=== PATIENT | male | born 1960 | race Caucasian/White ===

== ENCOUNTER 2016-12-14 08:02 | Day surgery (SDC) | payer OTHER ==
[~2016-12-14 08:02] MED LIST: Bupivacaine 0.25%/EPINEPHrine 1:200,000 10 ML SDV ONE; Lactated Ringers 1,000 ML IV SCH; Sodium Chloride 0.9% 10 ML Syringe FLUSH PRN; Sodium Chloride 0.9% 2.5 ML Syringe FLUSH PRN; ceFAZolin 2 GM in Premix Bag 1 BAG IV ONE
--- NOTE | 2016-12-14 08:40 | PCM.PREANE ---
Preanesthetic Assessment - Anesthesia/Transfusion/Family Hx Anesthesia History: Prior Anesthesia Without Reaction Family History of Anesthesia Reaction: No Transfusion History: No Prior Transfusion(s) - Review of Systems General: No Symptoms Pulmonary: No Symptoms Cardiovascular: No Symptoms Gastrointestinal: No Symptoms Neurological: No Symptoms Other: Reports: None - Physical Assessment NPO Status Date: 12/13/16 O2 Sat by Pulse Oximetry: 97 Respiratory Rate: 16 Vital Signs: Last Vital Signs Temp 36.6 C 12/14/16 08:22 Pulse 91 12/14/16 08:22 Resp 16 12/14/16 08:22 BP 145/90 H 12/14/16 08:22 Pulse Ox 97 12/14/16 08:22 Height: 1.71 m Weight: 65.317 kg ASA Class: 2 Mental Status: Alert & Oriented x3 Dentition: Reports: Dentures, Partial ROM/Head Extension: Full Lungs: Clear to Auscultation, Normal Respiratory Effort Cardiovascular: Regular Rate, Regular Rhythm - Allergies Allergies/Adverse Reactions: Allergies Allergy/AdvReac Type Severity Reaction Status Date / Time No Known Allergies Allergy Verified 12/16/13 10:50 - Anesthesia Plan Pre-Op Medication Ordered: None - Acknowledgements Anesthesia Type Planned: General Anesthesia Pt an Appropriate Candidate for the Planned Anesthesia: Yes Alternatives and Risks of Anesthesia Discussed w Pt/Guardian: Yes Pt/Guardian Understands and Agrees with Anesthesia Plan: Yes PreAnesthesia Questionnaire HEENT History: Reports: Other (See Below) Other HEENT History: top and bottom denture Cardiovascular History: Reports: Hypertension Respiratory History: Reports: None Gastrointestinal History: Reports: Hepatitis, Other (See Below) Other Gastrointestinal History: occasional heartburn, hx hepatitis C but has been on medication for this and no longer has Genitourinary History: Reports: None Musculoskeletal History: Reports: Other (See Below) Other Musculoskeletal History: chronic rt shoulder pain Dermatologic History: Reports: Psoriasis - Past Surgical History Head Surgeries/Procedures: Reports: None GI Surgical History: Reports: Colonoscopy, EGD - SUBSTANCE USE Smoking Status *Q: Current Every Day Smoker Days Per Week of Alcohol Use: 1 Number of Drinks Per Day: 2 Total Drinks Per Week: 2 Recreational Drug Use History: No - HOME MEDS Home Medications: Home Meds Etanercept [Enbrel] 1 injection IM ASDIRECTED 12/16/13 [History] Lisinopril 40 mg PO DAILY 12/16/13 [History] - CURRENT (IN HOUSE) MEDS Current Meds: Current Medications Lactated Ringer's (Ringers, Lactated) 1,000 mls @ 125 mls/hr IV ASDIRECTED TUNG Last Admin: 12/14/16 08:19 Dose: 125 mls/hr Sodium Chloride (Saline Flush) 10 ml FLUSH ASDIRECTED PRN PRN Reason: Keep Vein Open Sodium Chloride (Saline Flush) 2.5 ml FLUSH ASDIRECTED PRN PRN Reason: Keep Vein Open Discontinued Medications Bupivacaine HCl/Epinephrine Bitart (Marcaine 0.25%/Epinephrine 1:200,000) Confirm Administered Dose 20 ml .ROUTE .STK-MED ONE Stop: 12/14/16 07:27 Cefazolin Sodium/Dextrose 2 gm (/ Premix) 50 mls @ 100 mls/hr IV ONETIME ONE Stop: 12/10/16 20:21
[2016-12-14] MEDS ORDERED: Propofol 200 MG/20 ML SDV ONE (11:10)
[2016-12-14] MEDS ORDERED: fentaNYL 100 MCG/2 ML SDV ONE (11:11)
[2016-12-14] MEDS ORDERED: Ondansetron 4 MG/2 ML SDV ONE (11:15)
[2016-12-14] MEDS ORDERED: Rocuronium 10 MG/ML 10 ML Syringe ONE (11:15)
[2016-12-14] MEDS ORDERED: Neostigmine Methylsulfate 1 MG/ML 5 ML Syringe ONE (11:15)
[2016-12-14] MEDS ORDERED: Ketorolac 30 MG/ML SDV ONE (11:15)
[2016-12-14] MEDS ORDERED: diphenhydrAMINE 50 MG/ML SDV ONE (11:15)
[2016-12-14] MEDS ORDERED: Metoclopramide 10 MG/2 ML SDV ONE (11:15)
[2016-12-14] MEDS ORDERED: fentaNYL 100 MCG/2 ML SDV IVPUSH PRN (11:18)
[2016-12-14] MEDS ORDERED: ceFAZolin 1 GM Vial ONE ×2 (11:38→11:44)
[2016-12-14] MEDS ORDERED: HYDROmorphone 2 MG/ML Syringe ONE (11:41)
[2016-12-14] MEDS ORDERED: Bupivacaine 0.5% 30 ML SDV ONE (11:44)
[2016-12-14] MEDS ORDERED: Phenylephrine/Normal Saline 100 MCG/ML 10 ML Syringe ONE (11:45)
[2016-12-14] MEDS ORDERED: Naloxone 0.4 MG/ML Syringe ONE (13:53)
--- NOTE | 2016-12-14 14:14 | PCM.OPNOTE ---
- General Post-Op/Procedure Note Date of Surgery/Procedure: 12/14/16 Operative Procedure(s): Right inguinal hernia repair Findings: Incarcerated and partially necrotic omentum. The spermatic cord and vessels were thickened and inflamed. The testicle was high riding due to this inflamation or due to vascular compromise from the inflammation. Pre Op Diagnosis: Incarcerated right inguinal hernia Post-Op Diagnosis: same Anesthesia Technique: General ET Tube Primary Surgeon: Nallely Lynn Condition: Good
[2016-12-14] MEDS ORDERED: hydrALAZINE 20 MG/ML SDV IVPUSH ONE (14:33)
[2016-12-14] MEDS ORDERED: hydrALAZINE 20 MG/ML SDV ONE (14:35)
--- NOTE | 2016-12-14 21:09 | OR ---
SURGEON: TRACE LEWIS MD DATE OF PROCEDURE: 12/14/2016 PREOPERATIVE DIAGNOSIS: Incarcerated right inguinal hernia. POSTOPERATIVE DIAGNOSIS: Incarcerated right inguinal hernia. PROCEDURE PERFORMED: Right inguinal hernia repair with mesh. ANESTHESIA: General endotracheal anesthesia. FLUIDS: See the anesthesia record. ESTIMATED BLOOD LOSS: 10 mL. COMPLICATIONS: None. INDICATIONS: The patient is a 56-year-old male with a right inguinal pain for several months. He was originally diagnosed with epididymitis. The inflammation did not go away, so he was seen by a urologist. The urologist noted a high-riding right testicle, but did not feel he had epididymitis. A CT of the abdomen and pelvis was performed that showed a right inguinal hernia containing incarcerated and inflamed omentum. The patient saw me in clinic and we discussed the need for an urgent repair. The patient and I discussed the procedure as well as expected perioperative course. We discussed the risks, including bleeding, infection, or damage to surrounding structures, including loss of blood flow to the testicle. The patient verbalized understanding and wishes to proceed. PROCEDURE IN DETAIL: The patient was brought to the OR and placed on the OR table in supine position. A time-out was completed verifying the patient's name, age, date of , allergies, and procedure to be performed. General endotracheal anesthesia was induced. The abdomen, groin, and genitalia were prepped and draped in usual standard fashion. First the skin was anesthetized with 0.5% Marcaine plain. Two fingerbreadths above the pubic tubercle, a transverse incision was made using a 15 blade scalpel approximately 6 cm in length. Dissection was carried down with electrocautery through Jensen's fascia maintaining hemostasis. Once the external oblique was identified, it was incised along the length of its fibers with a 15 blade scalpel. Metzenbaum scissors were then used to extend the incision in both directions opening up the external oblique down to the external ring. The external oblique was grasped with hemostats on both sides. The cord, cord structures, as well as hernia sac were freed up circumferentially and a Yifan drain was placed around it. The hernia sac was identified and the anterior medial portion of the hernia sac was stripped down. The cord structures were noted to be thickened and woody. I was unable to discern the spermatic cord from the testicular vessels. I followed the cord structures through the internal ring and along their course in the peritoneum to confirm that the structure identified was the spermatic cord and vessels. I then followed this along structure down to the testicle. The testicle was again noted to be high riding. The hernia sac was thin walled and contained a large amount of omentum. The distal aspect of this omentum appeared slightly necrotic. I attempted to dissect the distal aspect of the hernia sac off the cord structures, but due to the amount of inflammation and edema, I was unable to do so safely. Dr. Calderon Walker, was asked to consult on the case and verify my anatomy. We both agreed that the safest course of action was to leave a small amount of necrotic omentum rather than risk compromising the testicle. Using cautery, I divided the omentum as close to the necrotic tissue as possible. The ends of this cut omentum were then tied with 2-0 silk. The remainder of the omentum was then dissected free of the cord structures and reduced into the abdomen. A Doppler was brought in to verify that there was still good blood flow going to the testicle. A good pulse was noted along the woody and inflamed spermatic cord. A large plug and patch was brought into the field. The plug was placed in the internal ring and secured to the transversalis fascia with 0 Ethibond sutures. The mesh was secured to the pubic tubercle medially along the ilioinguinal ligament inferiorly and along the conjoined tendon superiorly making a slit for the cord and cord structures. Once the mesh was secured in place, the external oblique was closed over the roof with a running 0 Vicryl suture. This was performed in a manner to not strangulate the cord and to recreate the external ring. After injecting the external oblique with Marcaine, the Jensen's fascia was approximated with a running 3-0 Vicryl suture. The skin was then closed with a running subcuticular 4-0 Monocryl suture. Steri-Strips and sterile dressings were applied. The patient was taken to the PACU in stable condition. ALICIA BERRY /[id number] BORIS
== END 2016-12-14 16:30 | disposition home or self-care (01) ==
LOC: MW.SDS 08:02
PROVIDERS: ATTEND Surgery
DX: K40.30 Unilateral inguinal hernia, with obstruction, without gangrene, not specified as recurrent (principal); B19.20 Unspecified viral hepatitis C without hepatic coma; I10 Essential (primary) hypertension; F17.210 Nicotine dependence, cigarettes, uncomplicated; Z79.899 Other long term (current) drug therapy; Z98.890 Other specified postprocedural states
CPT/HCPCS: 49507; A9270; C1781; J0360; J0690; J1170; J1200; J2405; J2765; J3010; J7120; 00830; J1885; J2704

== ENCOUNTER 2017-03-04 19:57 | Emergency (ER) | payer OTHER ==
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
[2017-03-04] MEDS ORDERED: hydrALAZINE 20 MG/ML SDV IVPUSH ONE ×2 (20:31→21:37)
[2017-03-04 21:05] LABS: CHLORIDE,CL 103 mmol/L (98-110); SODIUM,NA 140 mmol/L (136-146)
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
== END 2017-03-04 22:28 | disposition home or self-care (01) ==
LOC: MW.ED 19:57
DX: T07.XXXA Unspecified multiple injuries, initial encounter (principal); V43.63XA Car passenger injured in collision with pick-up truck in traffic accident, initial encounter; I10 Essential (primary) hypertension; F17.210 Nicotine dependence, cigarettes, uncomplicated; Z79.899 Other long term (current) drug therapy
CPT/HCPCS: 36415; 71045; 72100; 72125; 72190; 73080; 80053; 84484; 85025; 85610; 93005; 96374; 96376; 99285; G0390; J0360; 99284

== ENCOUNTER 2018-09-25 11:17 | Day surgery (SDC) | payer OTHER ==
[2018-09-25] MEDS ORDERED: Glucagon,Human Recombinant 1 MG Vial IVPUSH ONE (11:22)
--- NOTE | 2018-09-25 12:05 | EDM.PDOC ---
ED HPI GENERAL MEDICAL PROBLEM - General Chief Complaint: Gastrointestinal Problem Stated Complaint: SOMETHING STUCK IN THROAT,REF'D BY [facility] Time Seen by Provider: 09/25/18 11:22 Source of Information: Reports: Patient History Limitations: Reports: No Limitations - History of Present Illness INITIAL COMMENTS - FREE TEXT/NARRATIVE: History of present illness: []Patient was eating roast beef last night around 6 PM and a meat bolus stuck in his esophagus. She has not been able to swallow his saliva Review of systems: As per history of present illness and below otherwise all systems reviewed and negative. Past medical history: As per history of present illness and as reviewed below otherwise noncontributory. Surgical history: As per history of present illness and as reviewed below otherwise noncontributory. Social history: No reported history of drug or alcohol abuse. Family history: As per history of present illness and as reviewed below otherwise noncontributory. Physical exam: General: Well developed, well nourished in NAD HEENT: Atraumatic, normocephalic, pupils reactive, negative for conjunctival pallor or scleral icterus, mucous membranes moist, throat clear, neck supple, nontender, trachea midline. No stridor Lungs: Clear to auscultation, breath sounds equal bilaterally, chest nontender. Heart: S1S2, regular, negative for clicks, rubs, or JVD. Abdomen: NABS, Soft, nondistended, nontender. Negative for masses or hepatosplenomegaly. Negative for costovertebral tenderness. Pelvis: Stable nontender. Genitourinary: Deferred. Rectal: Deferred. Extremities: Atraumatic, negative for cords or calf pain. Neurovascular unremarkable. Neuro: Awake, alert, oriented. Cranial nerves II through XII unremarkable. Cerebellum unremarkable. Motor and sensory unremarkable throughout. Exam nonfocal. Skin:warm and dry Diagnostics: Chest x-ray Therapeutics: Glucagon ED Course: Consulted general surgery who is taking him to endoscopy suite for esophageal foreign body removal Impression: Esophageal foreign body Prescriptions: None Plan: admit today surgery Definitive disposition and diagnosis as appropriate pending reevaluation and review of above. - Related Data Allergies Allergy/AdvReac Type Severity Reaction Status Date / Time No Known Allergies Allergy Verified 09/25/18 11:23 Home Meds: Home Meds Lisinopril 40 mg PO DAILY 12/16/13 [History] Past Medical History HEENT History: Reports: Other (See Below) Other HEENT History: top and bottom denture Cardiovascular History: Reports: Hypertension Respiratory History: Reports: None Gastrointestinal History: Reports: Hepatitis, Other (See Below) Other Gastrointestinal History: occasional heartburn, hx hepatitis C but has been on medication for this and no longer has Genitourinary History: Reports: None Musculoskeletal History: Reports: Other (See Below) Other Musculoskeletal History: chronic rt shoulder pain Dermatologic History: Reports: Psoriasis - Infectious Disease History Infectious Disease History: Reports: Chicken Pox - Past Surgical History Head Surgeries/Procedures: Reports: None GI Surgical History: Reports: Colonoscopy, EGD Social & Family History - Family History Family Medical History: Noncontributory - Tobacco Use Smoking Status *Q: Current Every Day Smoker Years of Tobacco use: 20 Packs/Tins Daily: 0.3 - Caffeine Use Caffeine Use: Reports: Coffee - Alcohol Use Days Per Week of Alcohol Use: 7 Number of Drinks Per Day: 1 Total Drinks Per Week: 7 - Recreational Drug Use Recreational Drug Use: No ED ROS GENERAL - Review of Systems Review Of Systems: See Below ED EXAM, GI/ABD - Physical Exam Exam: See Below Course - Vital Signs Last Recorded V/S: Last Vital Signs Temp 97.1 F 09/25/18 11:24 Pulse 91 09/25/18 11:24 Resp 18 09/25/18 11:24 BP 166/109 H 09/25/18 11:24 Pulse Ox 99 09/25/18 11:24 - Orders/Labs/Meds Orders: Active Orders 24 hr Category Date Time Status Chest 1V Frontal [CR] Stat Exams 09/25/18 11:22 Taken Meds: Medications Discontinued Medications Generic Name Dose Route Start Last Admin Trade Name Kral PRN Reason Stop Dose Admin Glucagon 1 mg 09/25/18 11:22 09/25/18 11:33 Glucagen IVPUSH 09/25/18 11:23 1 mg ONETIME ONE Administration Departure - Departure Time of Disposition: 12:04 Disposition: Still A Patient 30 Condition: Good Clinical Impression: Esophageal obstruction due to food impaction - Discharge Information *PRESCRIPTION DRUG MONITORING PROGRAM REVIEWED*: Not Applicable *COPY OF PRESCRIPTION DRUG MONITORING REPORT IN PATIENT CHITRA: Not Applicable Referrals: Joe Mazariegos [employer]ER[employer]BUTION ENGINEER [Primary Care Provider] - - My Orders Last 24 Hours: My Active Orders 09/25/18 11:22 Chest 1V Frontal [CR] Stat - Assessment/Plan Last 24 Hours: My Active Orders 09/25/18 11:22 Chest 1V Frontal [CR] Stat
[2018-09-25] MEDS ORDERED: Lactated Ringers 1,000 ML IV SCH ×2 (12:15→13:00)
--- NOTE | 2018-09-25 12:15 | CR ---
HISTORY: Chest pain and shortness of breath. COMPARISON: 03/04/2017 FINDINGS: A portable erect AP view of the chest was obtained at 1128 hours. The lungs remain clear. No focal or diffuse infiltrates are present. The previously seen appearance of hyperinflation is no longer evident. Incidental note is made of a rounded density superimposed over the left lateral lower lung, probably a nipple shadow. The heart remains normal in size. The mediastinum is normal in appearance. The osseous structures are normal in appearance for the patient`s age. IMPRESSION: Normal portable chest single view. Dictated by Oswald Villa MD @ Sep 25 2018 12:11PM Signed by Dr. Oswald Villa @ Sep 25 2018 12:14PM
--- NOTE | 2018-09-25 12:17 | PCM.CONS ---
H&P History of Present Illness - General Date of Service: 09/25/18 Admit Problem/Dx: Foreign body obstruction of the esophagus. Inability to swallow secretions. Source of Information: Patient History Limitations: Reports: No Limitations - History of Present Illness Initial Comments - Free Text/Narative: Patient is a 58-year-old gentleman, who was eating dinner last night. They were having roast beef and he took a large bite of food. Immediately he was unable to swallow his own secretions. He elected not to present to the emergency room until today. He has never had a foreign body obstruction of the esophagus in the past and never required emergent endoscopy. Symptom Onset Date: 09/24/18 Symptom Onset Time: 18:00 Duration of Symptoms: Reports: Hour(s):, Getting Worse Location: Reports: Chest, Abdomen Quality: Reports: Pressure Severity: Severe Improves with: Reports: None Worsens with: Reports: Eating Context: Reports: Sick Contact Associated Symptoms: Reports: No Other Symptoms - Related Data Allergies/Adverse Reactions: Allergies Allergy/AdvReac Type Severity Reaction Status Date / Time No Known Allergies Allergy Verified 09/25/18 11:23 Home Medications: Home Meds Lisinopril 40 mg PO DAILY 12/16/13 [History] Past Medical History HEENT History: Reports: Other (See Below) Other HEENT History: top and bottom denture Cardiovascular History: Reports: Hypertension Respiratory History: Reports: None Gastrointestinal History: Reports: Hepatitis, Other (See Below) Other Gastrointestinal History: occasional heartburn, hx hepatitis C but has been on medication for this and no longer has Genitourinary History: Reports: None Musculoskeletal History: Reports: Other (See Below) Other Musculoskeletal History: chronic rt shoulder pain Dermatologic History: Reports: Psoriasis - Infectious Disease History Infectious Disease History: Reports: Chicken Pox - Past Surgical History Head Surgeries/Procedures: Reports: None GI Surgical History: Reports: Colonoscopy, EGD Social & Family History - Family History Family Medical History: Noncontributory - Tobacco Use Smoking Status *Q: Current Every Day Smoker Years of Tobacco use: 20 Packs/Tins Daily: 0.3 - Caffeine Use Caffeine Use: Reports: Coffee - Alcohol Use Days Per Week of Alcohol Use: 7 Number of Drinks Per Day: 1 Total Drinks Per Week: 7 - Recreational Drug Use Recreational Drug Use: No H&P Review of Systems - Review of Systems: Review Of Systems: See Below General: Denies: Fever, Chills, Malaise, Weakness, Fatigue HEENT: Reports: No Symptoms Pulmonary: Denies: Shortness of Breath, Wheezing Cardiovascular: Reports: Chest Pain. Denies: Palpitations, Dyspnea on Exertion Gastrointestinal: Reports: Abdominal Pain, Anorexia, Decreased Appetite, Difficulty Swallowing. Denies: Black Stool, Bloody Stool, Constipation, Diarrhea, Distension Genitourinary: Reports: No Symptoms Musculoskeletal: Reports: No Symptoms Skin: Reports: No Symptoms Psychiatric: Reports: No Symptoms Neurological: Reports: No Symptoms Hematologic/Lymphatic: Reports: No Symptoms Immunologic: Reports: No Symptoms Exam - Exam Exam: See Below - Vital Signs Vital Signs: Last Vital Signs Temp 97.1 F 09/25/18 11:24 Pulse 93 09/25/18 12:06 Resp 18 09/25/18 12:06 BP 171/120 H 09/25/18 12:06 Pulse Ox 97 09/25/18 12:06 Weight: 150 lb - Exam General: Alert, Oriented, Cooperative, Mild Distress HEENT: Conjunctiva Clear, Pupils Equal, Pupils Reactive. No: Scleral Icterus Neck: Supple, Trachea Midline Lungs: Clear to Auscultation, Normal Respiratory Effort Cardiovascular: Regular Rate, Regular Rhythm GI/Abdominal Exam: Normal Bowel Sounds, Soft, Non-Tender, No Organomegaly, No Distention (Male) Exam: Normal Inspection Rectal (Males) Exam: Deferred Back Exam: Normal Inspection Extremities: Normal Inspection Skin: Warm, Dry, Intact Neurological: Cranial Nerves Intact Psychiatric: Alert, Normal Affect, Normal Mood Consult PN Assessment/Plan Procedures: Procedures ASSAY OF TROPONIN QUANT (03/04/17) CHEST X-RAY 2VW FRONTAL&LATL (12/09/16) COMPLETE CBC AUTOMATED (12/09/16) COMPLETE CBC W/AUTO DIFF WBC (03/04/17) COMPREHEN METABOLIC PANEL (03/04/17) CT ABD & PELV 1/> REGNS (06/14/18) CT ABD & PELV W/CONTRAST (09/22/17) CT ABD & PELVIS W/O CONTRAST (12/07/16) CT NECK SPINE W/O DYE (03/04/17) DIAGNOSTIC COLONOSCOPY (12/17/13) ECHO EXAM OF ABDOMEN (12/12/13) EGD BIOPSY SINGLE/MULTIPLE (12/17/13) ELECTROCARDIOGRAM TRACING (03/04/17) EMERGENCY DEPT VISIT (03/04/17) PROTHROMBIN TIME (03/04/17) PRP I/NEHAL INIT BLOCK >5 YR (12/14/16) ROUTINE VENIPUNCTURE (03/04/17) THER/PROPH/DIAG INJ IV PUSH (03/04/17) TISSUE EXAM BY PATHOLOGIST (12/17/13) TX/PRO/DX INJ SAME DRUG TRUANT OFFICER (03/04/17) URINALYSIS AUTO W/SCOPE (12/07/16) US EXAM SCROTUM (12/01/16) X-RAY EXAM CHEST 1 VIEW (03/04/17) X-RAY EXAM L-S SPINE 2/3 VWS (03/04/17) X-RAY EXAM OF ELBOW (03/04/17) X-RAY EXAM OF PELVIS (03/04/17) (1) Esophageal obstruction due to food impaction SNOMED Code(s): 874945678 Code(s): K22.2 - ESOPHAGEAL OBSTRUCTION; T18.128A - FOOD IN ESOPHAGUS CAUSING OTHER INJURY, INITIAL ENCOUNTER Priority: High Current Visit: Yes Problem List Initiated/Reviewed/Updated: Yes My Orders Last 24 Hours: My Active Orders 09/25/18 12:12 Oxygen Therapy [RC] PRN Vital Signs [RC] PER UNIT ROUTINE Resuscitation Status Routine 09/25/18 12:15 Lactated Ringers @ 125 MLS/HR(1000ml) Lactated Ringers [Ringers, Lactated] 1, 000 ml IV ASDIRECTED 09/25/18 Lunch Nothing per Oral After Midnight Diet [DIET] Plan: Esophagogastroduodenoscopy with removal of esophageal foreign body and biopsy. The operative procedure, along with the risks, including, but not limited to, bleeding, perforation, and the need for surgery were discussed with the patient who voices understanding, offers no questions and wishes to proceed. Patient has been made aware of his increased risk for perforation given the fact that the obstruction has been present for 18 hours.
[2018-09-25] MEDS ORDERED: Lidocaine 2% 5 ML SDV ONE (12:25)
[2018-09-25] MEDS ORDERED: Propofol 200 MG/20 ML SDV ONE (12:25)
[2018-09-25] MEDS ORDERED: Midazolam 1 MG/ML 2 ML SDV ONE (12:25)
[2018-09-25] MEDS ORDERED: fentaNYL 250 MCG/5 ML SDV ONE (12:25)
--- NOTE | 2018-09-25 12:26 | PCM.PREANE ---
Preanesthetic Assessment - Anesthesia/Transfusion/Family Hx Anesthesia History: Prior Anesthesia Without Reaction Family History of Anesthesia Reaction: No Transfusion History: No Prior Transfusion(s) - Review of Systems Pulmonary: No Symptoms Cardiovascular: No Symptoms Gastrointestinal: Difficulty Swallowing Neurological: No Symptoms Other: Reports: None - Physical Assessment NPO Status Date: 09/24/18 Vital Signs: Last Vital Signs Temp 97.1 F 09/25/18 11:24 Pulse 91 09/25/18 12:20 Resp 19 09/25/18 12:20 BP 177/119 H 09/25/18 12:20 Pulse Ox 98 09/25/18 12:20 Height: 5 ft 8 in Weight: 68.039 kg ASA Class: 2 Mental Status: Alert & Oriented x3 Airway Class: Mallampati = 2 Dentition: Reports: Broken Tooth/Teeth, Missing Tooth/Teeth ROM/Head Extension: Other Lungs: Clear to Auscultation Cardiovascular: Regular Rate, Regular Rhythm - Allergies Allergies/Adverse Reactions: Allergies Allergy/AdvReac Type Severity Reaction Status Date / Time No Known Allergies Allergy Verified 09/25/18 11:23 - Blood Blood Available: No - Anesthesia Plan Pre-Op Medication Ordered: None - Acknowledgements Anesthesia Type Planned: General Anesthesia Pt an Appropriate Candidate for the Planned Anesthesia: Yes Alternatives and Risks of Anesthesia Discussed w Pt/Guardian: Yes Pt/Guardian Understands and Agrees with Anesthesia Plan: Yes PreAnesthesia Questionnaire HEENT History: Reports: Other (See Below) Other HEENT History: top and bottom denture Cardiovascular History: Reports: Hypertension Respiratory History: Reports: None Gastrointestinal History: Reports: Hepatitis, Other (See Below) Other Gastrointestinal History: occasional heartburn, hx hepatitis C but has been on medication for this and no longer has Genitourinary History: Reports: None Musculoskeletal History: Reports: Other (See Below) Other Musculoskeletal History: chronic rt shoulder pain Dermatologic History: Reports: Psoriasis - Infectious Disease History Infectious Disease History: Reports: Chicken Pox - Past Surgical History Head Surgeries/Procedures: Reports: None GI Surgical History: Reports: Colonoscopy, EGD - SUBSTANCE USE Smoking Status *Q: Current Every Day Smoker Tobacco Use Within Last Twelve Months: Cigarettes Days Per Week of Alcohol Use: 7 Number of Drinks Per Day: 1 Total Drinks Per Week: 7 Recreational Drug Use History: No - HOME MEDS Home Medications: Home Meds Lisinopril 40 mg PO DAILY 12/16/13 [History] - CURRENT (IN HOUSE) MEDS Current Meds: Current Medications Lactated Ringer's (Ringers, Lactated) 1,000 mls @ 125 mls/hr IV ASDIRECTED [facility] Last Admin: 09/25/18 12:19 Dose: 125 mls/hr Discontinued Medications Glucagon (Glucagen) 1 mg IVPUSH ONETIME ONE Stop: 09/25/18 11:23 Last Admin: 09/25/18 11:33 Dose: 1 mg
[2018-09-25] MEDS ORDERED: Ondansetron 4 MG/2 ML SDV ONE (12:48)
--- NOTE | 2018-09-25 13:02 | PCM.OPNOTE ---
- General Post-Op/Procedure Note Date of Surgery/Procedure: 09/25/18 Operative Procedure(s): Esophagogastroduodenoscopy with removal of esophageal foreign body and gastric biopsies Pre Op Diagnosis: Foreign body obstruction of the esophagus Post-Op Diagnosis: Foreign body obstruction of the esophagus. Acute and chronic gastritis. Anesthesia Technique: General ET Tube (ASA IIE) Primary Surgeon: Calderon Walker Condition: Fair Free Text/Narrative:: DICTATION 186769 CPT CODE 78191
--- NOTE | 2018-09-25 13:49 | PCM.POSTAN ---
POST ANESTHESIA ASSESSMENT - MENTAL STATUS Mental Status: Alert, Oriented - VITAL SIGNS Vital Signs: Last Vital Signs Temp 97.1 F 09/25/18 11:24 Pulse 86 09/25/18 13:41 Resp 15 09/25/18 13:41 BP 147/100 H 09/25/18 13:41 Pulse Ox 95 09/25/18 13:41 - RESPIRATORY Respiratory Status: Respiratory Rate WNL, Airway Patent, O2 Saturation Stable - CARDIOVASCULAR CV Status: Pulse Rate WNL, Blood Pressure Stable - GASTROINTESTINAL GI Status: No Symptoms - POST OP HYDRATION Hydration Status: Adequate & Stable
--- NOTE | 2018-09-25 13:49 | PCM48HPAN ---
Post Anesthesia Note - EVALUATION WITHIN 48HRS OF ANESTHETIC Vital Signs in Normal Range: Yes Patient Participated in Evaluation: Yes Respiratory Function Stable: Yes Airway Patent: Yes Cardiovascular Function Stable: Yes Hydration Status Stable: Yes Pain Control Satisfactory: Yes Nausea and Vomiting Control Satisfactory: Yes Mental Status Recovered: Yes Vital Signs: Last Vital Signs Temp 97.1 F 09/25/18 11:24 Pulse 86 09/25/18 13:41 Resp 15 09/25/18 13:41 BP 147/100 H 09/25/18 13:41 Pulse Ox 95 09/25/18 13:41
--- NOTE | 2018-09-25 14:08 | OR ---
SURGEON: Calderon Walker M.D. DATE OF PROCEDURE: 09/25/2018 OPERATION PERFORMED: Esophagogastroduodenoscopy with removal of esophageal foreign body and antral and gastric biopsy. PRIMARY SURGEON: Calderon Walker MD. ANESTHESIA: General endotracheal. ASA CLASSIFICATION: IIE. PREOPERATIVE DIAGNOSIS: Foreign body obstruction of the esophagus. POSTOPERATIVE DIAGNOSIS: Foreign body obstruction of the esophagus. DESCRIPTION OF PROCEDURE: The patient was taken to the operating room, placed on the operating table in the supine position. Time-out was called for appropriate identification of the patient and procedure. Following satisfactory attainment of general endotracheal anesthesia, the bite block was placed between the patient's teeth. The gastroscope was inserted through the bite block into the oropharynx and advanced down to the foreign body obstruction. I attempted to remove this en bloc with the 3-pronged grasper, but was unable to do so. Using the biopsy forceps, I was able to break up the foreign body and eventually pass it into the stomach. At that point, the gastroscope easily passed through the distal esophagus into the stomach and was advanced into the duodenum where examination was now carried out in a retrograde fashion. The duodenum shows no acute ulcerations. The stomach does show mild to moderate gastritis. Antral biopsies were obtained to look for the presence of Helicobacter pylori. The gastroscope was retroflexed to visualize the proximal stomach, which does show a very proximal gastritis secondary to irritation from the foreign body. The proximal stomach does show mild to moderate gastritis and separate biopsies of the greater curvature were obtained. The gastroscope was then withdrawn through the GE junction into the distal esophagus, which is very acutely inflamed. There was no obvious perforation of the esophagus noted on examination today. There was some bleeding present secondary to the duration of time that the foreign body had been there. The proximal and mid esophagus showed no acute inflammatory lesions. No Zenker's diverticulum was noted. As the patient was intubated, I was not able to visualize the vocal cords. The gastroscope was then removed with the patient having tolerated the procedure well. Following emergence from anesthesia and extubation, he was taken to recovery room in satisfactory condition. RADHA / JAMAL /[id number]
== END 2018-09-25 14:33 | disposition home or self-care (01) ==
LOC: MW.ED 11:17 → MW.SDS 12:06
PROVIDERS: ATTEND Surgery
DX: T18.128A Food in esophagus causing other injury, initial encounter (principal); K29.50 Unspecified chronic gastritis without bleeding; K20.9 Esophagitis, unspecified; K31.89 Other diseases of stomach and duodenum; I10 Essential (primary) hypertension; F17.210 Nicotine dependence, cigarettes, uncomplicated; Z79.899 Other long term (current) drug therapy
CPT/HCPCS: 43239; 43247; 71045; 96374; 99284; J0330; J1610; J2001; J2250; J2405; J2704; J3010; J7120; 00731; 88305; 88312

== ENCOUNTER 2019-08-12 12:05 | Day surgery (SDC) | payer OTHER ==
[2019-08-12] MEDS ORDERED: Glucagon,Human Recombinant 1 MG Vial IVPUSH ONE (12:12)
[2019-08-12] MEDS ORDERED: Glucagon,Human Recombinant 1 MG Vial ONE (12:12)
--- NOTE | 2019-08-12 12:12 | EDM.PDOC ---
ED HPI GENERAL MEDICAL PROBLEM - General Chief Complaint: ENT Problem Stated Complaint: FOOD LODGED IN ESOPHAGUS Time Seen by Provider: 08/12/19 12:08 Source of Information: Reports: Patient History Limitations: Reports: No Limitations - History of Present Illness INITIAL COMMENTS - FREE TEXT/NARRATIVE: HISTORY AND PHYSICAL: History of present illness: Patient is a 59-year-old male who presents to the emergency room with complaints of esophageal foreign body. Last evening he was eating steak when he felt the sensation that "something is lodged" in his throat. He states this last happened in 2019 when he had to have an EGD done by our general surgeon. He has made multiple attempts to drink fluids but "somehow they keep coming back up". He has not taken his lisinopril yet today as he feels he cannot keep anything down. He has no difficulty with breathing and offers no other complaints or concerns at this time. Review of systems: As per history of present illness and below otherwise all systems reviewed and negative. Past medical history: As per history of present illness and as reviewed below otherwise noncontributory. Surgical history: As per history of present illness and as reviewed below otherwise noncontributory. Social history: See social history for further information Family history: As per history of present illness and as reviewed below otherwise noncontributory. Physical exam: General: Well-developed and very thin appearing 59-year-old male. Alert and oriented. Nontoxic-appearing and in no acute distress. HEENT: Atraumatic, normocephalic, pupils equal and reactive bilaterally, negative for conjunctival pallor or scleral icterus, mucous membranes moist, TMs normal bilaterally, throat clear, neck supple, nontender, trachea midline. No drooling or trismus noted. No meningeal signs. No hot potato voice noted. Lungs: Clear to auscultation, breath sounds equal bilaterally, chest nontender. Heart: S1S2, regular rate and rhythm without overt murmur Abdomen: Soft, nondistended, nontender. Negative for masses or hepatosplenomegaly. Negative for costovertebral tenderness. Skin: Intact, warm, dry. No lesions or rashes noted. Extremities: Atraumatic, moves all extremities per self without difficulty or deficits, negative for cords or calf pain. Neurovascular unremarkable. Neuro: Awake, alert, oriented. Cranial nerves II through XII unremarkable. Cerebellum unremarkable. Motor and sensory unremarkable throughout. Exam nonfocal. Notes: Physical examination is within normal limits. Patient's blood pressure is elevated, he states he was not able to take his lisinopril today. He is asymptomatic of any cardiovascular or respiratory complaints at this time. Glucagon and PO challenge was done, unsuccessful. Patient is unable to swallow any fluids. 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 1240: Dr Walker was called, he will come in and see the patient for evaluation. 1300-Dr. Walker here to evaluate the patient. He will take him to back for EGD. Patient is aware and agreeable to plan of care. Diagnostics: COVID screening Therapeutics: Glucagon Prescription: None Impression: Esophageal foreign body Definitive disposition and diagnosis as appropriate pending reevaluation and review of above. - Related Data Allergies Allergy/AdvReac Type Severity Reaction Status Date / Time No Known Allergies Allergy Verified 08/12/19 12:12 Home Meds: Home Meds Lisinopril 20 mg PO DAILY 12/16/13 [History] Past Medical History HEENT History: Reports: Other (See Below) Other HEENT History: top and bottom denture Cardiovascular History: Reports: Hypertension Respiratory History: Reports: None Gastrointestinal History: Reports: Hepatitis, Other (See Below) Other Gastrointestinal History: occasional heartburn, hx hepatitis C but has been on medication for this and no longer has Genitourinary History: Reports: None Musculoskeletal History: Reports: Other (See Below) Other Musculoskeletal History: chronic rt shoulder pain Dermatologic History: Reports: Psoriasis - Infectious Disease History Infectious Disease History: Reports: Chicken Pox - Past Surgical History Head Surgeries/Procedures: Reports: None GI Surgical History: Reports: Colonoscopy, EGD Social & Family History - Family History Family Medical History: Noncontributory - Caffeine Use Caffeine Use: Reports: Coffee ED ROS ENT - Review of Systems Review Of Systems: Comprehensive ROS is negative, except as noted in HPI. ED EXAM, ENT - Physical Exam Exam: See Below (See dictation) Course - Vital Signs Last Recorded V/S: Last Vital Signs Temp 97.9 F 08/12/19 15:42 Pulse 99 08/12/19 15:58 Resp 20 08/12/19 15:58 BP 116/77 08/12/19 15:58 Pulse Ox 96 08/12/19 15:58 - Orders/Labs/Meds Orders: Active Orders 24 hr Category Date Time Status Admission Status [Patient Status] [ADT] Stat ADT 08/12/19 13:09 Active Oxygen Therapy [RC] PRN Care 08/12/19 13:57 Active Pulse Oximetry [RC] INTERMITTENT Care 08/12/19 15:33 Active Ready for Discharge [RC] PER UNIT ROUTINE Care 08/12/19 15:37 Active Up ad Ally [RC] ASDIRECTED Care 08/12/19 15:33 Active Vital Signs [RC] PER UNIT ROUTINE Care 08/12/19 13:57 Active Vital Signs [RC] PER UNIT ROUTINE Care 08/12/19 15:33 Active Advance Diet Instructions [DIET] Diet 08/12/19 Breakfast Active Nothing per Oral After Midnight Diet [DIET] Diet 08/12/19 Lunch Active Lactated Ringers [Ringers, Lactated] 1,000 ml Med 08/12/19 14:00 Active IV ASDIRECTED Lactated Ringers [Ringers, Lactated] 1,000 ml Med 08/12/19 15:45 Active IV ASDIRECTED Resuscitation Status Routine Resus Stat 08/12/19 13:57 Ordered Medication Orders Lactated Ringer's (Ringers, Lactated) 1,000 mls @ 125 mls/hr IV ASDIRECTED TUNG Last Admin: 08/12/19 14:10 Dose: 125 mls/hr Documented by: ITA Lactated Ringer's (Ringers, Lactated) 1,000 mls @ 125 mls/hr IV ASDIRECTED TUNG Labs: Laboratory Tests 08/12/19 Range/Units 13:15 SARS-CoV-2 RNA (RT-PCR) NEGATIVE (NEGATIVE) Meds: Medications Generic Name Dose Route Start Last Admin Trade Name Freq PRN Reason Stop Dose Admin Lactated Ringer's 1,000 mls @ 125 mls/hr 08/12/19 14:00 08/12/19 14:10 Ringers, Lactated IV 125 mls/hr ASDIRECTED TUNG Administration Lactated Ringer's 1,000 mls @ 125 mls/hr 08/12/19 15:45 Ringers, Lactated IV ASDIRECTED TUNG Discontinued Medications Generic Name Dose Route Start Last Admin Trade Name Freq PRN Reason Stop Dose Admin Fentanyl Confirm 08/12/19 14:24 Sublimaze Administered 08/12/19 14:25 Dose 100 mcg .ROUTE .STK-MED ONE Glucagon 1 mg 08/12/19 12:12 08/12/19 12:14 Glucagen IVPUSH 08/12/19 12:13 1 mg ONETIME ONE Administration Glucagon Confirm 08/12/19 12:12 08/12/19 12:14 Glucagen Administered 08/12/19 12:13 Not Given Dose 1 mg .ROUTE .STK-MED ONE Glycopyrrolate Confirm 08/12/19 14:26 Robinul Administered 08/12/19 14:27 Dose 0.2 mg .ROUTE .STK-MED ONE Hydralazine HCl 5 mg 08/12/19 14:17 08/12/19 14:32 Apresoline IVPUSH 08/12/19 14:18 5 mg ONETIME ONE Administration Hydralazine HCl 5 mg 08/12/19 14:44 08/12/19 14:45 Apresoline IVPUSH 08/12/19 14:45 5 mg ONETIME ONE Administration Lidocaine HCl Confirm 08/12/19 14:26 Xylocaine-Mpf 1% Administered 08/12/19 14:27 Dose 5 ml .ROUTE .STK-MED ONE Midazolam HCl Confirm 08/12/19 14:24 Versed 1 Mg/Ml Administered 08/12/19 14:25 Dose 2 mg .ROUTE .STK-MED ONE Ondansetron HCl Confirm 08/12/19 14:26 Zofran Administered 08/12/19 14:27 Dose 4 mg .ROUTE .STK-MED ONE Propofol Confirm 08/12/19 14:24 Diprivan 20 Ml Administered 08/12/19 14:25 Dose 200 mg .ROUTE .STK-MED ONE Departure - Departure Time of Disposition: 16:42 Disposition: Still A Patient 30 Clinical Impression: Esophageal foreign body Qualifiers: Encounter type: initial encounter Qualified Code(s): T18.108A - Unspecified foreign body in esophagus causing other injury, initial encounter - Discharge Information Sepsis Event Note (ED) - Focused Exam Vital Signs: Vital Signs Temp Pulse Resp BP Pulse Ox 08/12/19 15:58 99 20 116/77 96 08/12/19 15:53 98 18 123/82 98 08/12/19 15:48 96 16 124/77 99 08/12/19 15:42 97.9 F 95 16 135/75 99 08/12/19 14:52 157/91 H 08/12/19 14:39 171/109 H 08/12/19 14:32 207/115 H 08/12/19 14:15 83 184/108 H 08/12/19 14:05 97.5 F 90 16 183/122 H 87 L 08/12/19 14:01 97.3 F 101 H 17 164/109 H 98 08/12/19 12:10 96.4 F L 96 17 161/113 H 98 - My Orders Last 24 Hours: My Active Orders 08/12/19 13:09 Admission Status [Patient Status] [ADT] Stat - Assessment/Plan Last 24 Hours: My Active Orders 08/12/19 13:09 Admission Status [Patient Status] [ADT] Stat
--- NOTE | 2019-08-12 13:57 | PCM.CONS ---
H&P History of Present Illness - General Date of Service: 08/12/19 Admit Problem/Dx: Admission Diagnosis/Problem Admission Diagnosis/Problem Foreign body in esophagus Source of Information: Patient History Limitations: Reports: No Limitations - History of Present Illness Initial Comments - Free Text/Narative: Patient is a 59-year-old gentleman who presented the emergency room today again with difficulty swallowing and unable to keep his secretions down. He states he was eating some ribs last night, and they apparently became stuck in his esophagus. He does have a history of foreign body obstruction in the esophagus and did undergo emergent endoscopy with removal of a foreign body one-year ago. Denies any chest pain today. Symptom Onset Date: 08/11/19 Location: Reports: Chest Quality: Reports: Pressure Severity: Moderate Improves with: Reports: None Worsens with: Reports: None Associated Symptoms: Reports: No Other Symptoms - Related Data Allergies/Adverse Reactions: Allergies Allergy/AdvReac Type Severity Reaction Status Date / Time No Known Allergies Allergy Verified 08/12/19 12:12 Home Medications: Home Meds Lisinopril 20 mg PO DAILY 12/16/13 [History] Past Medical History HEENT History: Reports: Other (See Below) Other HEENT History: top and bottom denture Cardiovascular History: Reports: Hypertension Respiratory History: Reports: None Gastrointestinal History: Reports: Hepatitis, Other (See Below) Other Gastrointestinal History: occasional heartburn, hx hepatitis C but has been on medication for this and no longer has Genitourinary History: Reports: None Musculoskeletal History: Reports: Other (See Below) Other Musculoskeletal History: chronic rt shoulder pain Neurological History: Reports: None Psychiatric History: Reports: None Endocrine/Metabolic History: Reports: None Hematologic History: Reports: None Immunologic History: Reports: None Oncologic (Cancer) History: Reports: None Dermatologic History: Reports: Psoriasis - Infectious Disease History Infectious Disease History: Reports: Chicken Pox - Past Surgical History Head Surgeries/Procedures: Reports: None GI Surgical History: Reports: Colonoscopy, EGD Social & Family History - Family History Family Medical History: Noncontributory - Tobacco Use Smoking Status *Q: Current Every Day Smoker Years of Tobacco use: 20 Packs/Tins Daily: 0.1 - Caffeine Use Caffeine Use: Reports: Coffee - Alcohol Use Days Per Week of Alcohol Use: 7 Number of Drinks Per Day: 1 Total Drinks Per Week: 7 - Recreational Drug Use Recreational Drug Use: No H&P Review of Systems - Review of Systems: Review Of Systems: See Below General: Denies: Fever, Chills, Malaise, Weakness HEENT: Denies: Dysphasia, Ear Pain, Eye Pain Pulmonary: Denies: Shortness of Breath, Wheezing, Pleuritic Chest Pain Cardiovascular: Denies: Chest Pain, Palpitations, Dyspnea on Exertion Gastrointestinal: Reports: Anorexia, Decreased Appetite, Difficulty Swallowing. Denies: Abdominal Pain, Black Stool, Bloody Stool, Constipation, Diarrhea, Distension, Flatus Genitourinary: Denies: Dysuria, Frequency, Burning, Pain, Urgency Musculoskeletal: Denies: Neck Pain, Shoulder Pain Skin: Denies: Cyanosis, Jaundice, Mottled, Pallor, Diaphoresis Psychiatric: Denies: Confusion, Depression, Mood Lability, Anxiety Neurological: Denies: Confusion, Dizziness, Headache, Numbness, Difficulty Walking Hematologic/Lymphatic: Reports: No Symptoms Immunologic: Reports: No Symptoms Exam - Exam Exam: See Below - Vital Signs Vital Signs: Last Vital Signs Temp 96.4 F L 08/12/19 12:10 Pulse 96 08/12/19 12:10 Resp 17 08/12/19 12:10 BP 161/113 H 08/12/19 12:10 Pulse Ox 98 08/12/19 12:10 Weight: 145 lb - Exam General: Alert, Oriented, Cooperative, Moderate Distress HEENT: Conjunctiva Clear, Nares Patent, Pupils Equal, Pupils Reactive. No: Scleral Icterus Neck: Supple, Trachea Midline Lungs: Clear to Auscultation, Normal Respiratory Effort Cardiovascular: Regular Rate, Regular Rhythm. No: Systolic Murmur, Diastolic Murmur GI/Abdominal Exam: Normal Bowel Sounds, Soft, Non-Tender, No Distention. No: Guarding, Rigid, Rebound (Male) Exam: No Hernia, Normal Inspection Rectal (Males) Exam: Deferred Back Exam: Normal Inspection Extremities: Normal Inspection, Normal Range of Motion, Non-Tender Skin: Warm, Dry, Intact - Patient Data Lab Results Last 24 hrs: Laboratory Results - last 24 hr 08/12/19 Range/Units 13:15 SARS-CoV-2 RNA (RT-PCR) NEGATIVE (NEGATIVE) Sepsis Event Note - Evaluation Sepsis Screening Result: No Definite Risk - Focused Exam Vital Signs: Vital Signs Temp Pulse Resp BP Pulse Ox 08/12/19 12:10 96.4 F L 96 17 161/113 H 98 Date Exam was Performed: 08/12/19 Time Exam was Performed: 13:53 Consult PN Assessment/Plan Procedures: Procedures ASSAY OF TROPONIN QUANT (03/04/17) CHEST X-RAY 2VW FRONTAL&LATL (12/09/16) COMPLETE CBC AUTOMATED (12/09/16) COMPLETE CBC W/AUTO DIFF WBC (03/04/17) COMPREHEN METABOLIC PANEL (03/04/17) CT ABD & PELV 1/> REGNS (06/14/18) CT ABD & PELV W/CONTRAST (09/22/17) CT ABD & PELVIS W/O CONTRAST (12/07/16) CT NECK SPINE W/O DYE (03/04/17) DIAGNOSTIC COLONOSCOPY (12/17/13) ECHO EXAM OF ABDOMEN (12/12/13) EGD BIOPSY SINGLE/MULTIPLE (09/25/18) EGD REMOVE FOREIGN BODY (09/25/18) ELECTROCARDIOGRAM TRACING (03/04/17) EMERGENCY DEPT VISIT (09/25/18) EMERGENCY DEPT VISIT (03/04/17) PROTHROMBIN TIME (03/04/17) PRP I/NEHAL INIT BLOCK >5 YR (12/14/16) ROUTINE VENIPUNCTURE (03/04/17) THER/PROPH/DIAG INJ IV PUSH (09/25/18) TISSUE EXAM BY PATHOLOGIST (12/17/13) TX/PRO/DX INJ SAME DRUG FURRIER APPRENTICE (03/04/17) URINALYSIS AUTO W/SCOPE (12/07/16) US EXAM SCROTUM (12/01/16) X-RAY EXAM CHEST 1 VIEW (09/25/18) X-RAY EXAM L-S SPINE 2/3 VWS (03/04/17) X-RAY EXAM OF ELBOW (03/04/17) X-RAY EXAM OF PELVIS (03/04/17) (1) Esophageal foreign body SNOMED Code(s): 18335060 Code(s): T18.108A - UNSP FOREIGN BODY IN ESOPHAGUS CAUSING OTH INJURY, INIT Priority: High Current Visit: Yes Qualifiers: Encounter type: initial encounter Qualified Code(s): T18.108A - Unspecified foreign body in esophagus causing other injury, initial encounter (2) Esophageal obstruction due to food impaction SNOMED Code(s): 866806889 Code(s): K22.2 - ESOPHAGEAL OBSTRUCTION; T18.128A - FOOD IN ESOPHAGUS CAUSING OTHER INJURY, INITIAL ENCOUNTER Priority: High Current Visit: Yes Problem List Initiated/Reviewed/Updated: Yes Plan: Esophagogastroduodenoscopy with removal of esophageal foreign body and biopsy. The operative procedure, along with the risks, including, but not limited to, bleeding, perforation, and the need for surgery were discussed with the patient who voices understanding, offers no questions and wishes to proceed.
[2019-08-12] MEDS ORDERED: Lactated Ringers 1,000 ML IV SCH ×2 (14:00→15:45)
[2019-08-12] MEDS ORDERED: hydrALAZINE 20 MG/ML SDV IVPUSH ONE ×2 (14:17→14:44)
[2019-08-12] MEDS ORDERED: fentaNYL 100 MCG/2 ML SDV ONE (14:24)
[2019-08-12] MEDS ORDERED: Midazolam 1 MG/ML 2 ML SDV ONE (14:24)
[2019-08-12] MEDS ORDERED: Propofol 200 MG/20 ML SDV ONE (14:24)
--- NOTE | 2019-08-12 14:25 | PCM.PREANE ---
Preanesthetic Assessment - Anesthesia/Transfusion/Family Hx Anesthesia History: Prior Anesthesia Without Reaction Family History of Anesthesia Reaction: No Transfusion History: No Prior Transfusion(s) - Review of Systems General: No Symptoms Pulmonary: No Symptoms Cardiovascular: No Symptoms Gastrointestinal: Other (esoph fb) Neurological: No Symptoms Other: Reports: None - Physical Assessment Vital Signs: Last Vital Signs Temp 97.3 F 08/12/19 14:01 Pulse 101 H 08/12/19 14:01 Resp 17 08/12/19 14:01 BP 164/109 H 08/12/19 14:01 Pulse Ox 98 08/12/19 14:01 Height: 5 ft 7 in Weight: 65.771 kg ASA Class: 4 (poorly controlled systemic disease with bp 161/113) Mental Status: Alert & Oriented x3 Lungs: Clear to Auscultation, Normal Respiratory Effort Cardiovascular: Regular Rate, Regular Rhythm - Lab Values: Laboratory Last Values SARS-CoV-2 RNA (RT-PCR) NEGATIVE (NEGATIVE) 08/12/19 13:15 - Allergies Allergies/Adverse Reactions: Allergies Allergy/AdvReac Type Severity Reaction Status Date / Time No Known Allergies Allergy Verified 08/12/19 12:12 - Blood Blood Available: No - Anesthesia Plan Pre-Op Medication Ordered: Other (apressoline iv) - Acknowledgements Anesthesia Type Planned: General Anesthesia (RSI) Pt an Appropriate Candidate for the Planned Anesthesia: Yes Alternatives and Risks of Anesthesia Discussed w Pt/Guardian: Yes Pt/Guardian Understands and Agrees with Anesthesia Plan: Yes Additional Comments: pmh: htn- has not taken his lisinopril for "several days". copd, smoker, psoriasis, AUD-in remission, hep C- treated, PLAN: controll BP preoperatively, GET for endoscopic procedure PreAnesthesia Questionnaire HEENT History: Reports: Other (See Below) Other HEENT History: top and bottom denture Cardiovascular History: Reports: Hypertension Respiratory History: Reports: None Gastrointestinal History: Reports: Hepatitis, Other (See Below) Other Gastrointestinal History: occasional heartburn, hx hepatitis C but has be en on medication for this and no longer has Genitourinary History: Reports: None Musculoskeletal History: Reports: Other (See Below) Other Musculoskeletal History: chronic rt shoulder pain Neurological History: Reports: None Psychiatric History: Reports: None Endocrine/Metabolic History: Reports: None Hematologic History: Reports: None Immunologic History: Reports: None Oncologic (Cancer) History: Reports: None Dermatologic History: Reports: Psoriasis - Infectious Disease History Infectious Disease History: Reports: Chicken Pox - Past Surgical History Head Surgeries/Procedures: Reports: None GI Surgical History: Reports: Colonoscopy, EGD - SUBSTANCE USE Smoking Status *Q: Current Every Day Smoker Days Per Week of Alcohol Use: 7 Number of Drinks Per Day: 1 Total Drinks Per Week: 7 Recreational Drug Use History: No - HOME MEDS Home Medications: Home Meds Lisinopril 20 mg PO DAILY 12/16/13 [History] - CURRENT (IN HOUSE) MEDS Current Meds: Current Medications Hydralazine HCl (Apresoline) 5 mg IVPUSH ONETIME ONE Stop: 08/12/19 14:18 Lactated Ringer's (Ringers, Lactated) 1,000 mls @ 125 mls/hr IV ASDIRECTED TUNG Discontinued Medications Glucagon (Glucagen) 1 mg IVPUSH ONETIME ONE Stop: 08/12/19 12:13 Last Admin: 08/12/19 12:14 Dose: 1 mg Documented by: Glucagon (Glucagen) Confirm Administered Dose 1 mg .ROUTE .STK-MED ONE Stop: 08/12/19 12:13 Last Admin: 08/12/19 12:14 Dose: Not Given Documented by:
[2019-08-12] MEDS ORDERED: Succinylcholine/Sod PF 100 MG/5 ML SYRINGE IV ONE (14:26)
[2019-08-12] MEDS ORDERED: Glycopyrrolate 0.2 MG/ML SDV ONE (14:26)
[2019-08-12] MEDS ORDERED: Ondansetron 4 MG/2 ML SDV ONE (14:26)
--- NOTE | 2019-08-12 14:37 | PCM.PREANE ---
Preanesthetic Assessment - Anesthesia/Transfusion/Family Hx Anesthesia History: Prior Anesthesia Without Reaction Family History of Anesthesia Reaction: No Transfusion History: No Prior Transfusion(s) - Review of Systems General: No Symptoms Pulmonary: No Symptoms Cardiovascular: No Symptoms Gastrointestinal: Other (esoph fb) Other: Reports: None - Physical Assessment NPO Status Date: 08/12/19 (cl in ED) Vital Signs: Last Vital Signs Temp 97.3 F 08/12/19 14:01 Pulse 101 H 08/12/19 14:01 Resp 17 08/12/19 14:01 BP 164/109 H 08/12/19 14:01 Pulse Ox 98 08/12/19 14:01 Height: 5 ft 7 in Weight: 65.771 kg ASA Class: 4 (poorly controlled systemic disease with bp 161/113) Dentition: Reports: Dentures (full upper), Partial (lower) ROM/Head Extension: Full Lungs: Clear to Auscultation, Normal Respiratory Effort Cardiovascular: Regular Rate, Regular Rhythm - Lab Values: Laboratory Last Values SARS-CoV-2 RNA (RT-PCR) NEGATIVE (NEGATIVE) 08/12/19 13:15 - Allergies Allergies/Adverse Reactions: Allergies Allergy/AdvReac Type Severity Reaction Status Date / Time No Known Allergies Allergy Verified 08/12/19 12:12 - Blood Blood Available: No - Anesthesia Plan Pre-Op Medication Ordered: Other (apressoline) - Acknowledgements Anesthesia Type Planned: General Anesthesia (RSI) Pt an Appropriate Candidate for the Planned Anesthesia: Yes Alternatives and Risks of Anesthesia Discussed w Pt/Guardian: Yes Pt/Guardian Understands and Agrees with Anesthesia Plan: Yes Additional Comments: pmh: psoriasis, smoker, copd, htn- has not taken his lisinopril for "deveral days". hep C- has finished treatmtnt, PLAN: GET PreAnesthesia Questionnaire HEENT History: Reports: Other (See Below) Other HEENT History: top and bottom denture Cardiovascular History: Reports: Hypertension Respiratory History: Reports: None Gastrointestinal History: Reports: Hepatitis, Other (See Below) Other Gastrointestinal History: occasional heartburn, hx hepatitis C but has been on medication for this and no longer has Genitourinary History: Reports: None Musculoskeletal History: Reports: Other (See Below) Other Musculoskeletal History: chronic rt shoulder pain Neurological History: Reports: None Psychiatric History: Reports: None Endocrine/Metabolic History: Reports: None Hematologic History: Reports: None Immunologic History: Reports: None Oncologic (Cancer) History: Reports: None Dermatologic History: Reports: Psoriasis - Infectious Disease History Infectious Disease History: Reports: Chicken Pox - Past Surgical History Head Surgeries/Procedures: Reports: None GI Surgical History: Reports: Colonoscopy, EGD - SUBSTANCE USE Smoking Status *Q: Current Every Day Smoker Days Per Week of Alcohol Use: 7 Number of Drinks Per Day: 1 Total Drinks Per Week: 7 Recreational Drug Use History: No - HOME MEDS Home Medications: Home Meds Lisinopril 20 mg PO DAILY 12/16/13 [History] - CURRENT (IN HOUSE) MEDS Current Meds: Current Medications Lactated Ringer's (Ringers, Lactated) 1,000 mls @ 125 mls/hr IV ASDIRECTED TUNG Discontinued Medications Fentanyl (Sublimaze) Confirm Administered Dose 100 mcg .ROUTE .STK-MED ONE Stop: 08/12/19 14:25 Glucagon (Glucagen) 1 mg IVPUSH ONETIME ONE Stop: 08/12/19 12:13 Last Admin: 08/12/19 12:14 Dose: 1 mg Documented by: Glucagon (Glucagen) Confirm Administered Dose 1 mg .ROUTE .STK-MED ONE Stop: 08/12/19 12:13 Last Admin: 08/12/19 12:14 Dose: Not Given Documented by: Glycopyrrolate (Robinul) Confirm Administered Dose 0.2 mg .ROUTE .STK-MED ONE Stop: 08/12/19 14:27 Hydralazine HCl (Apresoline) 5 mg IVPUSH ONETIME ONE Stop: 08/12/19 14:18 Lidocaine HCl (Xylocaine-Mpf 1%) Confirm Administered Dose 5 ml .ROUTE .STK-MED ONE Stop: 08/12/19 14:27 Midazolam HCl (Versed 1 Mg/Ml) Confirm Administered Dose 2 mg .ROUTE .STK-MED ONE Stop: 08/12/19 14:25 Ondansetron HCl (Zofran) Confirm Administered Dose 4 mg .ROUTE .STK-MED ONE Stop: 08/12/19 14:27 Propofol (Diprivan 20 Ml) Confirm Administered Dose 200 mg .ROUTE .STK-MED ONE Stop: 08/12/19 14:25
--- NOTE | 2019-08-12 15:37 | PCM.OPNOTE ---
- General Post-Op/Procedure Note Date of Surgery/Procedure: 08/12/19 Operative Procedure(s): Esophagogastroduodenoscopy with removal of esophageal foreign body and gastric biopsies Pre Op Diagnosis: Foreign body obstruction of the esophagus Post-Op Diagnosis: Foreign body obstruction of the esophagus. Acute esophagitis. Anesthesia Technique: General ET Tube (ASA IV) Primary Surgeon: Calderon Walker Condition: Undetermined Free Text/Narrative:: DICTATION [id number] CPT CODE [id number]
--- NOTE | 2019-08-12 16:02 | PCM.POSTAN ---
POST ANESTHESIA ASSESSMENT - MENTAL STATUS Mental Status: Alert, Oriented - VITAL SIGNS Vital Signs: Last Vital Signs Temp 36.6 C 08/12/19 15:42 Pulse 99 08/12/19 15:58 Resp 20 08/12/19 15:58 BP 116/77 08/12/19 15:58 Pulse Ox 96 08/12/19 15:58 - RESPIRATORY Respiratory Status: Respiratory Rate WNL, Airway Patent, O2 Saturation Stable - CARDIOVASCULAR CV Status: Pulse Rate WNL, Blood Pressure Stable - GASTROINTESTINAL GI Status: No Symptoms - POST OP HYDRATION Hydration Status: Adequate & Stable
--- NOTE | 2019-08-12 16:34 | PCM48HPAN ---
Post Anesthesia Note - EVALUATION WITHIN 48HRS OF ANESTHETIC Vital Signs in Normal Range: Yes Patient Participated in Evaluation: Yes Respiratory Function Stable: Yes Airway Patent: Yes Cardiovascular Function Stable: Yes Hydration Status Stable: Yes Pain Control Satisfactory: Yes Nausea and Vomiting Control Satisfactory: Yes Mental Status Recovered: Yes Vital Signs: Last Vital Signs Temp 36.6 C 08/12/19 15:42 Pulse 99 08/12/19 15:58 Resp 20 08/12/19 15:58 BP 116/77 08/12/19 15:58 Pulse Ox 96 08/12/19 15:58
--- NOTE | 2019-08-12 16:52 | OR ---
SURGEON: Calderon Walker M.D. DATE OF PROCEDURE: 08/12/2019 OPERATION PERFORMED: Esophagogastroduodenoscopy with removal of esophageal foreign body and gastric biopsy. PRIMARY SURGEON: Calderon Walker MD ANESTHESIA: General endotracheal. ASA CLASSIFICATION: IV. PREOPERATIVE DIAGNOSIS: Foreign body obstruction of the esophagus. POSTOPERATIVE DIAGNOSES: 1. Foreign body obstruction of the esophagus. 2. Severe acute esophagitis. 3. Gastritis. DESCRIPTION OF PROCEDURE: The patient was taken to the endoscopy room and positioned on the endoscopy table in the supine position. Time-out was called for appropriate identification of the patient and procedure. Following satisfactory attainment of general endotracheal anesthesia, gastroscope was inserted through the bite block into the oropharynx and advanced to the mid esophagus. Immediately, there was a large esophageal foreign body present. This could not easily be broken up and required multiple passes of the cold biopsy forceps and the three-prong grasper. Even grasping it with the three-prong, I was not able to completely remove it and so it was broken up in a piecemeal fashion. Ultimately, it was broken up small enough that I could push it through the distal esophagus into the stomach. The scope was then further advanced through the stomach into the duodenum where examination was carried out in a retrograde fashion. The duodenum did show one small superficial ulcer, no acute bleeding was noted. The gastroscope was withdrawn to the stomach and antral biopsies were obtained to look for the presence of Helicobacter pylori. The gastroscope was retroflexed to again visualize the proximal stomach, confirming that the foreign body was indeed now in the stomach. The gastroscope was then straightened and slowly withdrawn. The midportion to distal portion of the esophagus demonstrates very severe acute esophagitis consistent with the fact that this foreign body had been present for more than 12 hours. There was no obvious tear in the esophagus and the proximal esophagus did not show any acute inflammatory changes. The patient was intubated, therefore, the vocal cords were visualized at the time of intubation, but not now. The gastroscope was then removed with the patient having tolerated the procedure well. He was taken to recovery room in stable condition. RADHA / JAMAL /[id number] BORIS
== END 2019-08-12 17:10 | disposition home or self-care (01) ==
LOC: MW.ED 12:05 → MW.SDS 13:09
PROVIDERS: ATTEND Surgery
DX: K22.2 Esophageal obstruction (principal); T18.108A Unspecified foreign body in esophagus causing other injury, initial encounter; K29.70 Gastritis, unspecified, without bleeding; K20.9 Esophagitis, unspecified; I10 Essential (primary) hypertension; F17.210 Nicotine dependence, cigarettes, uncomplicated; K26.9 Duodenal ulcer, unspecified as acute or chronic, without hemorrhage or perforation; Z11.59 Encounter for screening for other viral diseases; Z79.899 Other long term (current) drug therapy; Z98.890 Other specified postprocedural states
CPT/HCPCS: 43247; 45380; 87635; 96374; 96375; 99284; J0330; J0360; J1610; J2001; J2250; J2405; J2704; J3010; J3490; J7120; 88305; 88312; U0002

== ENCOUNTER 2021-03-20 17:48 | Emergency (ER) | payer OTHER ==
[2021-03-20] MEDS ORDERED: Sodium Chloride 0.9% 1,000 ML IV ONE (18:00)
[2021-03-20] MEDS ORDERED: Morphine 2 MG/ML SYRINGE IVPUSH ONE (18:00)
[2021-03-20] MEDS ORDERED: Aspirin 81 MG Tab.Chew PO ONE (18:00)
[2021-03-20 18:26] LABS: BLOOD UREA NITROGEN,BUN 11 mg/dL (7.0-18.0); CARBON DIOXIDE,CO2 28.2 mmol/L (21.0-32.0); CHLORIDE,CL 100 mmol/L (98-107); GLUCOSE RANDOM 113 mg/dL (74-106); POTASSIUM,K 3.7 mmol/L (3.5-5.1); SODIUM,NA 139 mmol/L (136-148)
[2021-03-20 18:51] LABS: CORONAVIRUS COVID-19 NAA NEGATIVE (NEGATIVE); INFLUENZA A NAA NEGATIVE (NEGATIVE); INFLUENZA B NAA NEGATIVE (NEGATIVE)
[2021-03-20] MEDS ORDERED: Iopamidol 755 Mg/ML 100 ML Bottle IVPUSH ONE (19:06)
== END 2021-03-20 20:30 | disposition home or self-care (01) ==
LOC: MW.ED 17:48
DX: R07.89 Other chest pain (principal); I10 Essential (primary) hypertension; Z79.899 Other long term (current) drug therapy; Z20.822 Contact with and (suspected) exposure to COVID-19
CPT/HCPCS: 0240U; 36415; 71045; 71275; 80053; 84484; 85025; 85379; 93005; 96374; 99285; A9270; J2270; J7030; Q9967

== ENCOUNTER 2021-07-19 14:57 | Emergency (ER) | payer OTHER ==
[2021-07-19] MEDS ORDERED: Sodium Chloride 0.9% 10 ML Syringe FLUSH PRN (15:12)
[2021-07-19] MEDS ORDERED: Sodium Chloride 0.9% 2.5 ML Syringe FLUSH PRN (15:12)
[2021-07-19] MEDS ORDERED: Ketorolac 30 MG/ML SDV IVPUSH ONE (16:17)
[2021-07-19 16:19] LABS: BLOOD UREA NITROGEN,BUN 11 mg/dL (7.0-18.0); CARBON DIOXIDE,CO2 29.1 mmol/L (21.0-32.0); CHLORIDE,CL 100 mmol/L (98-107); GLUCOSE RANDOM 106 mg/dL (74-106); LIPASE 99 U/L (73-393); POTASSIUM,K 4.3 mmol/L (3.5-5.1); SODIUM,NA 136 mmol/L (136-148)
[2021-07-19] MEDS ORDERED: Iopamidol 755 MG/ML 500 ML Multipack Bottle IVPUSH STA (17:47)
== END 2021-07-19 18:40 | disposition home or self-care (01) ==
LOC: MW.ED 14:57
DX: R10.31 Right lower quadrant pain (principal); I10 Essential (primary) hypertension; Z79.899 Other long term (current) drug therapy
CPT/HCPCS: 36415; 74177; 80053; 83690; 85025; 96374; 99284; J1885; J3490; Q9967